=== PATIENT | female | born 1935 | race Caucasian/White ===

== ENCOUNTER → 2016-04-19 | Outpatient (CLI) | payer MEDICARE, OTHER ==
--- NOTE | 2016-04-22 09:25 | MM ---
Reason for exam: screening (asymptomatic). Last mammogram was performed 1 year ago. History: Patient is postmenopausal. Physical Findings: A clinical breast exam by your physician is recommended on an annual basis and results should be correlated with mammographic findings. MG Screening Mammo w CAD Bilateral CC and MLO view(s) were taken. Prior study comparison: May 01, 2015, bilateral MG screening mammo w CAD. May 06, 2007, mammogram, performed at [facility]. There are scattered fibroglandular densities. Finding: There are typically benign round, linear calcifications in the right breast. There is no discrete abnormality. ASSESSMENT: Benign, BI-RAD 2 RECOMMENDATION: Routine screening mammogram of both breasts in 1 year.
== END | disposition home or self-care (01) ==
LOC: RADMAMWWP 10:48
PROVIDERS: ATTEND Internal Medicine
DX: Z12.31 Encounter for screening mammogram for malignant neoplasm of breast (principal)
CPT/HCPCS: 77063

== ENCOUNTER → 2017-11-10 | Outpatient (CLI) | payer MEDICARE, OTHER ==
--- NOTE | 2017-11-11 09:47 | US ---
EXAMINATION TYPE: US kidneys/renal and bladder DATE OF EXAM: 11/10/2017 COMPARISON: NONE CLINICAL HISTORY: R31.9 Hematuria. Hematuria, no pain per pt EXAM MEASUREMENTS: Right Kidney: 8.7 x 3.9 x 4.5 cm Left Kidney: 8.0 x 4.0 x 4.4 cm Right Kidney: No hydronephrosis or masses seen Left Kidney: Mid echogenic focus with shadow - 0.5 x 0.4 cm Bladder: wnl, mildly distended, limited visualization due to overlying bowel gas Bilateral Jets seen IMPRESSION: 1. Left renal stone without obstruction.
== END | disposition home or self-care (01) ==
LOC: RADUSWWP 15:06
PROVIDERS: ATTEND Internal Medicine
DX: N20.0 Calculus of kidney (principal)
CPT/HCPCS: 76770